=== PATIENT | female | born 1940 | race Caucasian/White ===

== ENCOUNTER 2019-10-23 19:43 | Emergency (ER) | payer MEDICARE, BC ==
[2019-10-23] MEDS ORDERED: Pantoprazole 40 MG Vial IVPUSH ONE (20:01)
[2019-10-23] MEDS ORDERED: Phytonadione 10 MG in Sodium Chloride 0.9% 50 ML IV ONE (20:04)
[2019-10-23] MEDS ORDERED: Factor IX Complex Human 500 UNIT VIAL IV STA (20:05)
[2019-10-23] MEDS ORDERED: Pantoprazole 80 MG in Sodium Chloride 0.9% 100 ML IV SCH (20:15)
--- NOTE | 2019-10-23 20:20 | EDM.PDOC ---
ED HPI GENERAL MEDICAL PROBLEM - General Chief Complaint: Gastrointestinal Problem Stated Complaint: [facility] Time Seen by Provider: 10/23/19 19:47 Source of Information: Reports: Patient, Family ([id number] = Dr. Eckert) History Limitations: Reports: No Limitations - History of Present Illness INITIAL COMMENTS - FREE TEXT/NARRATIVE: Ms. 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 She tells me that she felt bloated yesterday, then had small amounts of emesis overnight, keeping her up. This morning she had a black bowel movement, and has had a total of 3 today, with the most recent just prior to coming to the ED. She felt lightheaded and fell to the floor around 18:45. She did not lose consciousness, but while on the floor, she vomited a large amount of blood, as witnessed by her [id number]. The patient denies having any abdominal pain. No prior similar symptoms. No recent fever, chills, cough, dyspnea, chest pain, palpitations, constipation , diarrhea, abdominal pain, recent weight gain or weight loss, recent headaches , or rashes. The patient's INR was 3.0 on 10/19/19. The patient tells me that she received a local steroid injection to her right shoulder this past 10/19/2019. She states that she has been taking over -the-counter ibuprofen, 400 mg a day, for the past 2 days only. She also takes Tylenol fairly regularly. The patient's last solid food was yesterday. The patient's PCP is Dr. Elis Poon. Her Chuck Tender is Dr. Chet Mas. Her Orthopedic Surgeon is Dr. Frankie Aldana. She received an influenza vaccine this season. - Related Data Allergies Allergy/AdvReac Type Severity Reaction Status Date / Time kidney persaud Allergy Other Uncoded 05/19/19 07:15 Past Medical History Cardiovascular History: Reports: Afib (chronic), High Cholesterol, Hypertension , Pulmonary Hypertension (secondary to severe TR), Other (See Below) (Rheumatic heart disease as a child) Respiratory History: Reports: COPD (PFT-confirmed) Genitourinary History: Reports: Urinary Incontinence (stress incontinence) Musculoskeletal History: Reports: Osteoarthritis Endocrine/Metabolic History: Reports: Obesity/BMI 30+ - Past Surgical History HEENT Surgical History: Reports: Cataract Surgery (bilateral), Oral Surgery ( wisdom teeth extraction) Musculoskeletal Surgical History: Reports: Hip Replacement (bilateral) Social & Family History - Tobacco Use Smoking Status *Q: Former Smoker Years of Tobacco use: 44 Packs/Tins Daily: 0.5 Month/Year Tobacco Last Used: Quit 2011 - Alcohol Use Alcohol Use History: Yes Alcohol Use Frequency: Socially - Recreational Drug Use Recreational Drug Use: No - Living Situation & Occupation Living situation: Reports: , with Family Occupation: Retired ED ROS GENERAL - Review of Systems Review Of Systems: Comprehensive ROS is negative, except as noted in HPI. ED EXAM, GI/ABD - Physical Exam Exam: See Below Exam Limited By: No Limitations General Appearance: Alert, WD/WN, No Apparent Distress Eyes: Bilateral: Normal Appearance, EOMI Ears: Normal External Exam, Hearing Grossly Normal Nose: Normal Inspection Throat/Mouth: Normal Inspection, Normal Lips, Normal Voice, No Airway Compromise Head: Atraumatic, Normocephalic Neck: Normal Inspection, Full Range of Motion Respiratory/Chest: No Respiratory Distress, Lungs Clear, Normal Breath Sounds, No Accessory Muscle Use Cardiovascular: Normal Peripheral Pulses, No Edema, No Gallop, No JVD, No Murmur , No Rub, Tachycardia, Irregularly Irregular GI/Abdominal Exam: Normal Bowel Sounds, Soft, Non-Tender, No Organomegaly, No Distention, No Abnormal Bruit, No Mass (Female) Exam: Deferred Rectal (Female) Exam: Deferred Back Exam: Normal Inspection, Full Range of Motion, NT Extremities: Normal Inspection, Normal Range of Motion, No Pedal Edema, Normal Capillary Refill Neurological: Alert, Oriented, Normal Cognition, No Motor/Sensory Deficits Psychiatric: Normal Affect Skin Exam: Warm, Dry, Intact, Normal Color, No Rash EKG INTERPRETATION EKG Date: 10/23/19 Time: 20:10 Rhythm: A-Fib Rate (Beats/Min): 136 [place]: Normal P-Wave: Absent QRS: Normal ST-T: Depressed (anterolateral leads, without T-wave inversions, likely secondary to repolarization abnormality due to rate) QT: Normal Comparison: NA - No Prior EKG Course - Vital Signs Last Recorded V/S: Last Vital Signs Temp 36.6 C 10/23/19 21:17 Pulse 123 H 10/23/19 21:37 Resp 18 10/23/19 21:37 BP 113/60 10/23/19 21:37 Pulse Ox 99 10/23/19 21:37 - Orders/Labs/Meds Orders: Active Orders 24 hr Category Date Time Status EKG Documentation Completion [RC] STAT Care 10/23/19 20:00 Active Orthostatic Vital Signs [RC] STAT Care 10/23/19 20:00 Inactive PATIENT RETYPE [BBK] Routine Lab 10/23/19 20:32 Ordered RED BLOOD CELLS LP [BBK] Stat Lab 10/23/19 19:58 Results TYPE AND SCREEN [BBK] Stat Lab 10/23/19 19:58 Results Magnesium Sulfate/Water [Magnesium Sulfate in Water Med 10/23/19 21:37 Active Premix] 2 gm Premix Bag 1 bag IV ONETIME Pantoprazole [ProTONIX IV] 80 mg Med 10/23/19 20:15 Active Sodium Chloride 0.9% [Normal Saline] 100 ml IV Q10H Sodium Chloride 0.9% [Normal Saline] 1,000 ml Med 10/23/19 21:34 Active IV ONETIME Transfuse Red Blood Cells [COMM] Stat Oth 10/23/19 20:02 Ordered Medication Orders Pantoprazole Sodium 80 mg/ (Sodium Chloride) 100 mls @ 10 mls/hr IV Q10H [facility] Last Admin: 10/23/19 20:35 Dose: 8 mg/hr, 10 mls/hr Sodium Chloride (Normal Saline) 1,000 mls @ 999 mls/hr IV ONETIME ONE Stop: 10/23/19 22:34 Last Admin: 10/23/19 22:11 Dose: 999 mls/hr Magnesium Sulfate 2 gm/ Premix 50 mls @ 50 mls/hr IV ONETIME ONE Stop: 10/23/19 22:36 Last Admin: 10/23/19 22:11 Dose: 50 mls/hr Labs: Laboratory Tests 10/23/19 10/23/19 10/23/19 Range/Units 19:58 19:58 19:58 WBC 14.94 H (3.98-10.04) K/mm3 RBC 3.56 L (3.98-5.22) M/mm3 Hgb 10.9 L (11.2-15.7) gm/dl Hct 35.0 (34.1-44.9) % MCV 98.3 H (79.4-94.8) fl MCH 30.6 (25.6-32.2) pg MCHC 31.1 L (32.2-35.5) g/dl RDW Std Deviation 44.5 (36.4-46.3) fL Plt Count 250 (182-369) K/mm3 MPV 9.1 L (9.4-12.3) fl Neut % (Auto) 51.3 (34.0-71.1) % Lymph % (Auto) 36.5 (19.3-51.7) % [place] % (Auto) 8.4 (4.7-12.5) % Eos % (Auto) 0.7 (0.7-5.8) Baso % (Auto) 0.2 (0.1-1.2) % Neut # (Auto) 7.67 H (1.56-6.13) K/mm3 Lymph # (Auto) 5.45 H (1.18-3.74) K/mm3 [place] # (Auto) 1.25 H (0.24-0.36) K/mm3 Eos # (Auto) 0.11 (0.04-0.36) K/mm3 Baso # (Auto) 0.03 (0.01-0.08) K/mm3 Manual Slide Review Abnormal smear PT 35.4 H (9.7-12.0) SECONDS INR 3.49 APTT 33 H (22-31) SECONDS Sodium 141 (136-145) mEq/L Potassium 5.9 H (3.5-5.1) mEq/L Chloride 109 H (98-107) mEq/L Carbon Dioxide 21 (21-32) mEq/L Anion Gap 16.9 H (5-15) BUN 110 H (7-18) mg/dL Creatinine 1.8 H (0.55-1.02) mg/dL Est Cr Clr Drug Dosing TNP Estimated GFR (MDRD) 27 (>60) mL/min BUN/Creatinine Ratio 61.1 H (14-18) Glucose 202 H (83-115) mg/dL Calcium 8.6 (8.5-10.1) mg/dL Magnesium 1.6 L (1.8-2.4) mg/dl Total Bilirubin 0.3 (0.2-1.0) mg/dL AST 16 (15-37) U/L ALT 36 (14-59) U/L Alkaline Phosphatase 59 (46-116) U/L Troponin I < 0.017 (0.00-0.056) ng/mL Total Protein 5.6 L (6.4-8.2) g/dl Albumin 2.5 L (3.4-5.0) g/dl Globulin 3.1 gm/dL Albumin/Globulin Ratio 0.8 L (1-2) Blood Type Gel Antibody Screen Crossmatch 10/23/19 Range/Units 19:58 WBC (3.98-10.04) K/mm3 RBC (3.98-5.22) M/mm3 Hgb (11.2-15.7) gm/dl Hct (34.1-44.9) % MCV (79.4-94.8) fl MCH (25.6-32.2) pg MCHC (32.2-35.5) g/dl RDW Std Deviation (36.4-46.3) fL Plt Count (182-369) K/mm3 MPV (9.4-12.3) fl Neut % (Auto) (34.0-71.1) % Lymph % (Auto) (19.3-51.7) % [place] % (Auto) (4.7-12.5) % Eos % (Auto) (0.7-5.8) Baso % (Auto) (0.1-1.2) % Neut # (Auto) (1.56-6.13) K/mm3 Lymph # (Auto) (1.18-3.74) K/mm3 [place] # (Auto) (0.24-0.36) K/mm3 Eos # (Auto) (0.04-0.36) K/mm3 Baso # (Auto) (0.01-0.08) K/mm3 Manual Slide Review PT (9.7-12.0) SECONDS INR APTT (22-31) SECONDS Sodium (136-145) mEq/L Potassium (3.5-5.1) mEq/L Chloride (98-107) mEq/L Carbon Dioxide (21-32) mEq/L Anion Gap (5-15) BUN (7-18) mg/dL Creatinine (0.55-1.02) mg/dL Est Cr Clr Drug Dosing Estimated GFR (MDRD) (>60) mL/min BUN/Creatinine Ratio (14-18) Glucose (83-115) mg/dL Calcium (8.5-10.1) mg/dL Magnesium (1.8-2.4) mg/dl Total Bilirubin (0.2-1.0) mg/dL AST (15-37) U/L ALT (14-59) U/L Alkaline Phosphatase (46-116) U/L Troponin I (0.00-0.056) ng/mL Total Protein (6.4-8.2) g/dl Albumin (3.4-5.0) g/dl Globulin gm/dL Albumin/Globulin Ratio (1-2) Blood Type O POSITIVE Gel Antibody Screen Negative Crossmatch See Detail Meds: Medications Generic Name Dose Route Start Last Admin Trade Name Freq PRN Reason Stop Dose Admin Pantoprazole Sodium 80 mg/ 100 mls @ 10 mls/hr 10/23/19 20:15 10/23/19 20:35 Sodium Chloride IV 8 mg/hr Q10H PRICILA 10 mls/hr Administration 8 MG/HR Sodium Chloride 1,000 mls @ 999 mls/hr 10/23/19 21:34 10/23/19 22:11 Normal Saline IV 10/23/19 22:34 999 mls/hr ONETIME ONE Administration Magnesium Sulfate 2 gm/ Premix 50 mls @ 50 mls/hr 10/23/19 21:37 10/23/19 22: 11 IV 10/23/19 22:36 50 mls/hr ONETIME ONE Administration Discontinued Medications Generic Name Dose Route Start Last Admin Trade Name Freq PRN Reason Stop Dose Admin Factor IX (Pha) 2,500 unit 10/23/19 20:05 10/23/19 20:55 Kcentra IV 10/23/19 20:06 2,500 unit ONETIME STA Administration Phytonadione 10 mg/ Sodium 51 mls @ 100 mls/hr 10/23/19 20:04 10/23/19 21:05 Chloride IV 10/23/19 20:34 100 mls/hr NOW ONE Administration Ondansetron HCl 4 mg 10/23/19 21:40 10/23/19 22:10 Zofran IVPUSH 10/23/19 21:41 4 mg ONETIME ONE Administration Pantoprazole Sodium 80 mg 10/23/19 20:01 10/23/19 20:42 Protonix Iv IVPUSH 10/23/19 20:02 80 mg BOLUS ONE Administration - Re-Assessments/Exams Free Text/Narrative Re-Assessment/Exam: 10/23/19 20:14 Clearly, the patient is suffering from an upper GI bleed that has likely been going on since yesterday. I am very concerned, since the patient is on Coumadin , with an INR of 3.0 on 10/19/2019. I have ordered blood work, occluding a CBC, CMP, magnesium level, and coags, along with a troponin and ECG, given her age. I have ordered orthostatics, and will determine whether or not to give the patient IV fluid based on the results of that. In the meantime, I have ordered type and cross matching of 2 units of PRBCs. The patient will be given 80 mg of Protonix IVP, followed by a Protonix drip at 8 mg/h. She will receive 10 units of vitamin K, and 2500 units of Kcentra; more if her INR returns 4.0 or greater. An 18-gauge IV has been placed into the patient's right antecubital fossa, a 20-gauge in her left. Current guidelines do not recommend routine gastric lavage, however, the patient will require an EGD within 24 hours. 10/23/19 21:38 The patient's CBC is remarkable for a WBC count elevated at 14.94, but with 0% bandemia. Her Hgb is depressed at 10.9 with a Hct normal at 35.0. The remainder of her CBC is unremarkable. Her CMP is remarkable for a potassium elevated at 5.9 and a chloride elevated at 109. Her anion gap is elevated at 16.9, but her bicarbonate is normal at 21. Her BUN/Cr are elevated at 110/1.8, and her blood glucose is elevated at 202. The remainder of her CMP is unremarkable. Her magnesium level is depressed at 1.6. Her troponin is undetectably low. Her INR is supratherapeutic at 3.49. No prior labs to compare, however, the patient was able to access prior labs on her cell phone, and her BUN/Cr were 50/1.56 on 05/09/2019. The patient's initial vitals were not immediately entered into the computer, as the nurse was busy preparing the vitamin K, Kcentra, Protonix, and Protonix drip that I had ordered. Now that they are available, I see that the patient's initial BP was 86/71 with a HR of 130. Her BP dropped as low as 71/49 with a HR of 140. It has since risen to 113/60 with a HR of 123. Based on the patient's low BP, I have ordered 1 L of NS. I do not see an indication for pressors at this time. Based on her hypomagnesemia, I have ordered a 2 g Mg-rider. The patient's hyperkalemia and elevated BUN are likely due to digestion of blood. Her creatinine is only mildly above her baseline. Due to the patient's hemodynamic instability, I believe she would be better served if she were transferred to a higher level of care. She prefers [facility]. Case discussed with Odilia at [facility] Call at 21:33. Case then discussed with Dr. Barrios, Emergency Physician at [facility] , at 21:44. He accepted the patient for transfer to their ED. Departure - Departure Time of Disposition: 21:50 Disposition: DC/Tfer to Acute Hospital 02 Condition: Fair Clinical Impression: Upper GI bleed, Supratherapeutic INR, Hypomagnesemia, Atrial fibrillation with RVR, Hypotension - Discharge Information *PRESCRIPTION DRUG MONITORING PROGRAM REVIEWED*: Not Applicable *COPY OF PRESCRIPTION DRUG MONITORING REPORT IN PATIENT LANIE: Not Applicable Referrals: Elis Cavanaugh MD [Primary Care Provider] - Chet Mas MD [Ordering Only Provider] - Frankie Aldana DO [Physician] - Forms: ED Department Discharge Sepsis Event Note - Focused Exam Vital Signs: Vital Signs Temp Pulse Resp BP Pulse Ox 10/23/19 21:37 123 H 18 113/60 99 10/23/19 21:17 36.6 C 135 H 20 103/77 10/23/19 21:02 36.1 C 130 H 16 82/62 L 10/23/19 20:40 140 H 20 71/49 L 99 10/23/19 20:30 130 H 16 86/71 L 98 10/23/19 20:15 128 H 16 108/69 96 Date Exam was Performed: 10/23/19 Time Exam was Performed: 22:27 - My Orders Last 24 Hours: My Active Orders 10/23/19 19:58 RED BLOOD CELLS LP [BBK] Stat TYPE AND SCREEN [BBK] Stat 10/23/19 20:00 EKG Documentation Completion [RC] STAT Orthostatic Vital Signs [RC] STAT 10/23/19 20:02 Transfuse Red Blood Cells [COMM] Stat 10/23/19 20:15 Pantoprazole [ProTONIX IV] 80 mg Sodium Chloride 0.9% [Normal Saline] 100 ml IV Q10H 10/23/19 20:32 PATIENT RETYPE [BBK] Routine 10/23/19 21:34 Sodium Chloride 0.9% [Normal Saline] 1,000 ml IV ONETIME 10/23/19 21:37 Magnesium Sulfate/Water [Magnesium Sulfate in Water Premix] 2 gm Premix Bag 1 bag IV ONETIME - Assessment/Plan Last 24 Hours: My Active Orders 10/23/19 19:58 RED BLOOD CELLS LP [BBK] Stat TYPE AND SCREEN [BBK] Stat 10/23/19 20:00 EKG Documentation Completion [RC] STAT Orthostatic Vital Signs [RC] STAT 10/23/19 20:02 Transfuse Red Blood Cells [COMM] Stat 10/23/19 20:15 Pantoprazole [ProTONIX IV] 80 mg Sodium Chloride 0.9% [Normal Saline] 100 ml IV Q10H 10/23/19 20:32 PATIENT RETYPE [BBK] Routine 10/23/19 21:34 Sodium Chloride 0.9% [Normal Saline] 1,000 ml IV ONETIME 10/23/19 21:37 Magnesium Sulfate/Water [Magnesium Sulfate in Water Premix] 2 gm Premix Bag 1 bag IV ONETIME
[2019-10-23] MEDS ORDERED: Sodium Chloride 0.9% 1,000 ML IV ONE (21:34)
[2019-10-23] MEDS ORDERED: Magnesium Sulfate/Water 2 GM in Premix Bag 1 BAG IV ONE (21:37)
[2019-10-23] MEDS ORDERED: Ondansetron 4 MG/2 ML SDV IVPUSH ONE (21:40)
== END 2019-10-23 23:20 ==
LOC: JD.ED 19:43
DX: I48.91 Unspecified atrial fibrillation (principal); K92.2 Gastrointestinal hemorrhage, unspecified; I95.9 Hypotension, unspecified; R79.1 Abnormal coagulation profile; I10 Essential (primary) hypertension; Z87.891 Personal history of nicotine dependence; Z91.018 Allergy to other foods
CPT/HCPCS: 36415; 36430; 80053; 83735; 84484; 85025; 85610; 85730; 86850; 86900; 86901; 86922; 93005; 96365; 96366; 96368; 96375; 99285; C9113; C9132; J2405; J3430; J3475; J7030; J7050; P9016; 93010

== ENCOUNTER 2022-03-15 14:55 | Emergency (ER) | payer MEDICARE, BC ==
[2022-03-15] MEDS ORDERED: HYDROmorphone 1 MG/ML Syringe IVPUSH ONE (15:17)
[2022-03-15] MEDS ORDERED: Metoclopramide 10 MG/2 ML SDV IVPUSH ONE (15:20)
[2022-03-15] MEDS ORDERED: Sodium Chloride 0.9% 1,000 ML IV SCH (15:30)
[2022-03-15 15:50] LABS: ESTIMATED GFR 38 mL/min (>60)
[2022-03-15] MEDS ORDERED: HYDROmorphone 0.5 MG/0.5 ML Syringe IVPUSH ONE (19:55)
[2022-03-16] MEDS ORDERED: HYDROmorphone 0.5 MG/0.5 ML Syringe IVPUSH ONE ×3 (00:09→04:32)
== END 2022-03-16 05:00 ==
LOC: JD.ED 14:55
DX: S72.142A Displaced intertrochanteric fracture of left femur, initial encounter for closed fracture (principal); I11.0 Hypertensive heart disease with heart failure; I50.9 Heart failure, unspecified; I48.91 Unspecified atrial fibrillation; E66.9 Obesity, unspecified; E78.00 Pure hypercholesterolemia, unspecified; Z79.01 Long term (current) use of anticoagulants; Z88.8 Allergy status to other drugs, medicaments and biological substances; Z79.899 Other long term (current) drug therapy; X58.XXXA Exposure to other specified factors, initial encounter
CPT/HCPCS: 36415; 51702; 71045; 72170; 73552; 80053; 80162; 81003; 83735; 83880; 85025; 85610; 85730; 86140; 93005; 96361; 96374; 96375; 96376; 99285; J1170; J2765; J7030; 93010; 99284

== ENCOUNTER 2024-05-13 03:15 | Inpatient (IN) | payer MEDICARE, BC ==
[2024-05-13] MEDS ORDERED: Sodium Chloride 0.9% 10 ML Syringe FLUSH PRN (05:51)
[2024-05-13] MEDS ORDERED: Naloxone 0.4 MG/ML SDV IVPUSH PRN (05:52)
[2024-05-13] MEDS: Sodium Chloride 0.9% 1,000 ML IV SCH ×2 (06:14→13:14)
[2024-05-13] MEDS: Morphine 2 MG/ML SYRINGE IVPUSH ONE (06:15)
[2024-05-13 06:21] LABS: BASOPHILS PERCENT AUTO 0.2 % (0.0-1.0); EOSINOPHILS PERCENT AUTO 0.1 % (0.0-6.0); HEMATOCRIT 44.5 % (37.0-47.0); HEMOGLOBIN 14.1 gm/dl (12.0-16.0); IMMATURE GRAN ABSOLUTE AUTO 0.07 K/mm3 (0.00-0.05); IMMATURE GRAN PERCENT AUTO 0.7 % (0.0-0.4); LYMPHOCYTES ABSOLUTE AUTO 1.3 K/mm3 (1.0-4.8); MEAN CORPUSCULAR HEMOGLOBIN 29.7 pg (28.0-32.0); MEAN CORPUSCULAR HGB CONC 31.7 g/dl (32.0-36.0); MEAN CORPUSCULAR VOLUME 93.9 fl (83.0-99.0); MONOCYTES ABSOLUTE AUTO 0.6 K/mm3 (0.0-0.8); MONOCYTES PERCENT AUTO 6.1 % (0.0-8.0); NEUTROPHILS ABSOLUTE AUTO 8.5 K/mm3 (1.8-7.7); NEUTROPHILS PERCENT AUTO 80.9 % (41.0-71.0); PLATELET COUNT,PLT 222 K/mm3 (150-400); RED BLOOD CELL COUNT 4.74 M/mm3 (4.10-5.30); WHITE BLOOD CELL COUNT,WBC 10.51 K/mm3 (3.9-11.3)
[2024-05-13 07:00] LABS: INR 1.68; PROTHROMBIN TIME 17.2 SECONDS (9.7-12.0)
[2024-05-13 07:01] LABS: PTT,PARTIAL THROMBOPLSTIN TIME 36.5 SECONDS (21.7-31.4)
[2024-05-13 07:14] LABS: A/G RATIO 0.7 (1-2); ALBUMIN 2.9 g/dl (3.4-5.0); ANION GAP 15.3 (5-15); BILIRUBIN TOTAL 1.5 mg/dL (0.2-1.0); BUN/CREATININE RATIO 24.6 (14-18); CALCIUM 9.7 mg/dL (8.5-10.1); CREATININE 1.3 mg/dL (0.55-1.02); EST CRCL DRUG DOSING (CG) 26.39 mL/min; MAGNESIUM 1.6 mg/dL (1.8-2.4); POTASSIUM,K 4.3 mEq/L (3.5-5.1); PROTEIN TOTAL,TP 6.9 g/dl (6.4-8.2)
[2024-05-13] MEDS: Sodium Chloride 0.9% 100 ML IV SCH (09:26)
[2024-05-13] MEDS: Iopamidol 755 Mg/ML 100 ML Bottle IVPUSH ONE (09:26)
[2024-05-13] MEDS: Metoclopramide 10 MG/2 ML SDV IVPUSH ONE (09:37)
[2024-05-13] MEDS: HYDROmorphone 0.5 MG/0.5 ML Syringe IVPUSH ONE (09:40)
[2024-05-13] MEDS: Acetaminophen 325 MG Tab PO ONE (09:41)
[2024-05-13 10:26] LABS: C-REACTIVE PROTEIN 16.08 mg/dL (<0.30); DIGOXIN 0.7 ng/mL (0.9-2.0)
[2024-05-13 10:28] LABS: CORONAVIRUS COVID-19 NAA NEGATIVE (NEGATIVE); INFLUENZA A NAA NEGATIVE (NEGATIVE); RESPIRATORY SYNCYTIAL VIR NAA NEGATIVE (NEGATIVE)
[2024-05-13] MEDS: Magnesium Citrate Solution 296 ML Bottle PO ONE (10:43)
[2024-05-13] MEDS: fentaNYL 100 MCG/2 ML SDV IVPUSH ONE (11:11)
[2024-05-13] MEDS: Diltiazem 25 MG/5 ML SDV IVPUSH ONE (11:31)
[2024-05-13] MEDS: Furosemide 40 MG/4 ML VIAL IVPUSH ONE (11:31)
[2024-05-13 11:52] LABS: APPEARANCE,URINE SLT CLOUDY (Clear); BILIRUBIN,URINE NEGATIVE (Negative); COLOR,URINE YELLOW (Yellow); GLUCOSE,URINE NEGATIVE (Negative); KETONES,URINE NEGATIVE (Negative); LEUKOCYTE ESTERASE,URINE 1+ (Negative); NITRITE,URINE NEGATIVE (Negative); OCCULT BLOOD,URINE TRACE-INTACT (Negative); PROTEIN,URINE 1+ (Negative); UROBILINOGEN,URINE 0.2 (0.2-1.0)
[2024-05-13 11:59] LABS: BACTERIA,URINE MODERATE /hpf (FEW); MUCUS,URINE FEW /hpf (FEW)
[2024-05-13 13:02] LABS: INR 1.63; PROTHROMBIN TIME 16.7 SECONDS (9.7-12.0)
[2024-05-13] MEDS: cefTRIAXone 2 GM in Sodium Chloride 0.9% 100 ML IV ONE (13:19)
[2024-05-13] MEDS: Warfarin 2.5 MG Tab PO ONE (13:19)
[2024-05-13] MEDS ORDERED: Ondansetron 4 MG/2 ML SDV IV PRN (14:14)
[2024-05-13] MEDS ORDERED: Ondansetron 4 MG Tab.DIS PO PRN (14:14)
[2024-05-13] MEDS ORDERED: Sennosides/Docusate Sodium 50-8.6 MG Tab PO PRN (14:14)
[2024-05-13] MEDS ORDERED: Albuterol 6.7 GM Inhaler INH PRN (14:29)
[2024-05-13] MEDS: Lactulose Soln 10 GM/15 ML 30 ML UD Cup PO SCH (14:46)
[2024-05-13] MEDS: Heparin Sodium 5,000 Units/ML Vial IVPUSH ONE (14:46)
[2024-05-13] MEDS: atorvaSTATin 40 MG Tab PO SCH (14:53)
[2024-05-13] MEDS: Magnesium Sulfate/Water 4 GM in Premix Bag 1 BAG IV ONE (14:53)
[2024-05-13] MEDS: Heparin Sodium/D5W 25,000 UNITS/500 ML BAG IV SCH (18:22)
[2024-05-13] MEDS: Formoterol/Mometasone 200-5 MCG 8.8 GM Inhaler INH SCH (21:02)
[2024-05-13] MEDS: Metoprolol Tartrate 25 MG Tab PO SCH (21:39)
[2024-05-13] MEDS: Acetaminophen/HYDROcodone 325-5 MG Tab PO PRN (21:45)
[2024-05-13] MEDS: Cyclobenzaprine 10 MG Tab PO PRN (21:45)
[2024-05-14] MEDS: predniSONE 5 MG Tab PO SCH (06:32)
[2024-05-14 08:00] LABS: BASOPHILS PERCENT AUTO 0.1 % (0.0-1.0); EOSINOPHILS ABSOLUTE AUTO 0.1 K/mm3 (0.0-0.4); EOSINOPHILS PERCENT AUTO 0.8 % (0.0-6.0); HEMATOCRIT 40.2 % (37.0-47.0); HEMOGLOBIN 13.1 gm/dl (12.0-16.0); IMMATURE GRAN ABSOLUTE AUTO 0.06 K/mm3 (0.00-0.05); IMMATURE GRAN PERCENT AUTO 0.6 % (0.0-0.4); LYMPHOCYTES PERCENT AUTO 20.3 % (24.0-44.0); MEAN CORPUSCULAR HEMOGLOBIN 30.3 pg (28.0-32.0); MEAN CORPUSCULAR HGB CONC 32.6 g/dl (32.0-36.0); MEAN CORPUSCULAR VOLUME 93.1 fl (83.0-99.0); MEAN PLATELET VOLUME 9.2 fl (9.4-12.3); MONOCYTES ABSOLUTE AUTO 0.6 K/mm3 (0.0-0.8); MONOCYTES PERCENT AUTO 6.2 % (0.0-8.0); NEUTROPHILS ABSOLUTE AUTO 7.2 K/mm3 (1.8-7.7); PLATELET COUNT,PLT 244 K/mm3 (150-400); RED BLOOD CELL COUNT 4.32 M/mm3 (4.10-5.30); WHITE BLOOD CELL COUNT,WBC 9.99 K/mm3 (3.9-11.3)
[2024-05-14 08:07] LABS: INR 1.89; PROTHROMBIN TIME 19.2 SECONDS (9.7-12.0)
[2024-05-14 08:10] LABS: A/G RATIO 0.7 (1-2); ALBUMIN 2.7 g/dl (3.4-5.0); ANION GAP 12.8 (5-15); BILIRUBIN TOTAL 0.7 mg/dL (0.2-1.0); BUN/CREATININE RATIO 20.8 (14-18); CALCIUM 9.4 mg/dL (8.5-10.1); CREATININE 1.3 mg/dL (0.55-1.02); EST CRCL DRUG DOSING (CG) 26.39 mL/min; MAGNESIUM 2.7 mg/dL (1.8-2.4); PHOSPHORUS 3.6 mg/dL (2.6-4.7); POTASSIUM,K 3.8 mEq/L (3.5-5.1); PROTEIN TOTAL,TP 6.8 g/dl (6.4-8.2)
[2024-05-14] MEDS: Folic Acid 1 MG Tab PO SCH (08:53)
[2024-05-14] MEDS: Furosemide 20 MG Tab PO SCH (08:53)
[2024-05-14] MEDS: Digoxin 125 MCG Tab PO SCH (08:54)
[2024-05-14] MEDS: Morphine 2 MG/ML SYRINGE IVPUSH PRN (08:55)
[2024-05-14] MEDS ORDERED: Furosemide 20 MG Tab PO SCH (09:00)
[2024-05-14] MEDS ORDERED: predniSONE 10 MG Tab PO SCH (09:15)
[2024-05-14] MEDS: Potassium Chloride 20 MEQ Tab.ER PO ONE (09:46)
[2024-05-14] MEDS: cefTRIAXone 2 GM in Sodium Chloride 0.9% 100 ML IV SCH (12:31)
[2024-05-14] MEDS: predniSONE 20 MG Tab PO SCH (12:32)
[2024-05-14] MEDS: Warfarin 5 MG Tab PO SCH (17:19)
[2024-05-14] MEDS: Metoprolol Tartrate 5 MG/5 ML SDV IVPUSH ONE (17:51)
[2024-05-15 05:42] LABS: ANION GAP 12.2 (5-15); BUN/CREATININE RATIO 27.3 (14-18); CREATININE 1.5 mg/dL (0.55-1.02); EST CRCL DRUG DOSING (CG) 22.87 mL/min; POTASSIUM,K 4.2 mEq/L (3.5-5.1)
[2024-05-15 06:08] LABS: INR 1.93; PROTHROMBIN TIME 19.6 SECONDS (9.7-12.0)
[2024-05-15] MEDS: Lactulose Soln 10 GM/15 ML 30 ML UD Cup PO SCH (08:48)
[2024-05-15] MEDS: Acetaminophen 325 MG Tab PO PRN (08:48)
[2024-05-15] MEDS: predniSONE 20 MG Tab PO SCH (12:18)
[2024-05-15] MEDS: Heparin Sodium 5,000 Units/ML Vial IVPUSH ONE (13:22)
[2024-05-15] MEDS: Warfarin 5 MG Tab PO SCH (17:22)
[2024-05-16] MEDS: Melatonin 3 MG Tab PO PRN (01:25)
[2024-05-16 02:02] LABS: ANION GAP 18.2 (5-15); BUN/CREATININE RATIO 30.6 (14-18); CALCIUM 9.1 mg/dL (8.5-10.1); CREATININE 1.7 mg/dL (0.55-1.02); EST CRCL DRUG DOSING (CG) 20.18 mL/min; POTASSIUM,K 4.2 mEq/L (3.5-5.1)
[2024-05-16 02:04] LABS: INR 2.21; PROTHROMBIN TIME 22.2 SECONDS (9.7-12.0)
[2024-05-16] MEDS ORDERED: 50% Dextrose in Water 50 ML Syringe IVPUSH PRN (03:28)
[2024-05-16] MEDS: Insulin Lispro 100 Unit/ML 3 ML KwikPen SUBCUT ONE (04:17)
[2024-05-16] MEDS: Insulin Lispro 100 Unit/ML 3 ML KwikPen SUBCUT SCH (08:30)
[2024-05-16] MEDS: predniSONE 20 MG Tab PO SCH (11:02)
[2024-05-16 14:02] LABS: HEMOGLOBIN A1C 6.7 %
[2024-05-16] MEDS ORDERED: Warfarin 5 MG Tab PO SCH (18:00)
[2024-05-17] MEDS ORDERED: predniSONE 20 MG Tab PO SCH (11:00)
[2024-05-18] MEDS ORDERED: predniSONE 20 MG Tab PO SCH (11:00)
[2024-05-19] MEDS ORDERED: predniSONE 20 MG Tab PO SCH (11:00)
[2024-05-20] MEDS ORDERED: predniSONE 10 MG Tab PO SCH (11:00)
== END 2024-05-16 16:50 | disposition home or self-care (01) | DRG 542 ==
LOC: JD.ED 03:15 → JD.MS 13:22
PROVIDERS: ADMIT Emergency Medicine; ATTEND Student in an Organized Health Care Education/Training Program
DX: S32.010A Wedge compression fracture of first lumbar vertebra, initial encounter for closed fracture (principal); M48.56XA Collapsed vertebra, not elsewhere classified, lumbar region, initial encounter for fracture; I50.33 Acute on chronic diastolic (congestive) heart failure; R50.9 Fever, unspecified; R79.82 Elevated C-reactive protein (CRP); I13.0 Hypertensive heart and chronic kidney disease with heart failure and stage 1 through stage 4 chronic kidney disease, or unspecified chronic kidney disease; N39.0 Urinary tract infection, site not specified; I48.91 Unspecified atrial fibrillation; E78.00 Pure hypercholesterolemia, unspecified; E66.9 Obesity, unspecified; N18.9 Chronic kidney disease, unspecified; M06.9 Rheumatoid arthritis, unspecified; J44.9 Chronic obstructive pulmonary disease, unspecified; I27.20 Pulmonary hypertension, unspecified; X58.XXXA Exposure to other specified factors, initial encounter; I70.1 Atherosclerosis of renal artery; Z68.36 Body mass index [BMI] 36.0-36.9, adult; R79.1 Abnormal coagulation profile; E11.65 Type 2 diabetes mellitus with hyperglycemia; E11.22 Type 2 diabetes mellitus with diabetic chronic kidney disease; K59.01 Slow transit constipation; Z96.653 Presence of artificial knee joint, bilateral; Z63.5 Disruption of family by separation and divorce; Z79.01 Long term (current) use of anticoagulants; Z79.52 Long term (current) use of systemic steroids; Z86.16 Personal history of COVID-19; Z98.49 Cataract extraction status, unspecified eye; Z87.891 Personal history of nicotine dependence; Z98.890 Other specified postprocedural states; Z79.899 Other long term (current) drug therapy
CPT/HCPCS: 0241U; 36415; 72128; 72191; 74175; 80048; 80053; 80162; 81001; 82947; 83036; 83690; 83735; 83880; 84100; 84484; 85025; 85610; 85730; 86140; 87040; 87086; 93005; 94640; 94761; 96374; 96375; 96376; 99285; 93010; 99222; 99232; 99239; A9270-GY; J0696; J1170; J1644; J1815; J1940; J2270; J2765; J3010; J3475; J3490; J7030; J7512; Q9967